=== PATIENT | female | born 1995 | race African-American/Black ===

== ENCOUNTER 2017-07-05 09:26 | Day surgery (SDC) | payer OTHER ==
[2017-07-05 09:57] LABS: #Lymphocytes 1.7 thou/uL (1.20-3.40); #Monocytes 0.5 thou/uL (0.11-0.59); #Neutrophils 5.3 thou/uL (1.40-6.50); %Basophils 0.3 % (0.0-1.0); %Eosinophils 0.6 % (0.0-10.0); %Lymphocytes 22.8 % (21.0-51.0); Hematocrit 25.5 % (36.0-47.0); Mean Platelet Volume 10.8 fL (7.4-10.4); Red Blood Cell (RBC) Count 3.93 mill/uL (4.20-5.40); White Blood Cell (WBC) Count 7.6 thou/uL (4.8-10.8)
[2017-07-05 10:11] LABS: Anisocytosis SLIGHT = 6-15 cells (100X) (0-5/hpf); Elliptocytes SLIGHT = 2-5 cells (100X) (0-1/hpf); Hypochromia MODERATE=16-30 cells (100X) (0-5/hpf); Microcytosis MODERATE=15-30 cells (100X) (0-5/hpf); Ovalocytes SLIGHT = 2-5 cells (100X) (0-1/hpf); Polychromasia SLIGHT = 2-3 cells (100X) (0-2/hpf); Schistocytes SLIGHT = 2-5 cells (100X) (0-1/hpf); Target Cells SLIGHT = 2-5 cells (100X) (0-1/hpf)
[2017-07-05 10:45] VITALS: BMI 17.7
[2017-07-05] MEDS ORDERED: FLU VACC QS2017-18 36 mo. & older 0.5 ML SYRINGE IM ONE (11:00)
--- NOTE | 2017-07-05 11:14 | PDOC.LDHP ---
Labor and Delivery H&P Chief complaint: contractions, abdominal pain, other (diarrhea) HPI: 21 yo at 19.4 by LMP/reported 14w sono who presents for chief complaint of contractions and diarrhea. She has had nausea and vomiting throughout the and takes promethazine every 6 hours for nausea. She has not had ongoing vomiting but started to have diarrhea last night and had approximately 8 episodes over the last 12 hours. She noticed some cramping as well and that the baby "dropped" again. She is not sure if she has had any leakage of fluid. She says the cramping started at 2100 and increased in severity at 0200 and again at 0700. At that time she called an ambulance and was taken to the ER. She is feeling the baby move occasionally. When she was in the ER she had the urge to push. A vaginal exam was performed with showed her cervix to be closed/ thick/high with no noted bleeding or discharge. 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 and primary C/S at 30w Current complications: other (see above) Past Medical History: Uterine Didelphys Anemia of Prior C/S N/V of Current medications: pre- vitamins, iron Previous surgical history: low tranverse CS, other (bladder surgery) Social history: other - Physical Exam Vital signs reviewed and normal: yes General: NAD Heart: RRR Lungs: CTAB Abdomen: NTTP Extremeties: no edema [place] contractions every: initially every 3 minutes, now none picking up on toco - Vaginal Exam cm dilated: 0 Effacement: 0% Station: -3 - Assessment 21 yo at 19.4w by LMP/reported 14 w sono here with contractions without cervical change - Plan -: 1. Contractions without cervical change - Initially q3 minutes on monitor - Now spaced out - IVF and continue to monitor 2. sIUP - Records from [facility] indicate fundal placenta and DWAYNE of 16 on 06/13/2017 - Dr. Torrie Gordon in [place] is primary OB - She has follow-up appointment with Dr. Gordon tomorrow - Continue PNV 3. Uterine didelphys 4. H/o C/S 5. H/o bladder surgery 6. Anemia of - Continue iron - Improved since last check 7. Diarrhea - Likely viral gastroenteritis - Will IV hydration and monitor - Will send stool studies if persistent 8. Back pain - Initially worse with contractions now persistent - Tossing and turning all night - Will try flexeril and see if she has relief 9. Headache - Has had a headache every other day or so the last few weeks - Endorses history of migraines but headache today is different and feels like a band - IVF and tylenol Plan discussed with Dr. Connell who is in agreement <Liliam Amor - Last Filed: 07/05/17 11:32> <Yari Connell - Last Filed: 07/05/17 14:29> Allergies/Adverse Reactions: Allergies Allergy/AdvReac Type Severity Reaction Status Date / Time diphenhydramine Allergy Short of Verified 07/05/17 10:17 [From Benadryl] Breath Attending Addendum - Attending Addendum I personally evaluated the patient and discussed the management with Dr. Amor. I agree with the History, Examination, Assessment and Plan documented above. Patient reports symptoms have resolved. Discharged home to follow up at scheduled appointment tomorrow. <Yari Connell - Last Filed: 07/05/17 14:29>
[2017-07-05] MEDS ORDERED: Acetaminophen 500 MG TAB PO PRN (11:31)
[2017-07-05] MEDS ORDERED: Cyclobenzaprine 10 MG TAB PO SCH (12:00)
== END 2017-07-05 13:30 | disposition home or self-care (01) ==
LOC: ERS 09:26 → L&D/OP 10:09
PROVIDERS: ATTEND Obstetrics & Gynecology
DX: O60.02 Preterm labor without delivery, second trimester (principal); Z3A.19 19 weeks gestation of pregnancy; Q51.2 Other doubling of uterus; O99.012 Anemia complicating pregnancy, second trimester; O99.89 Other specified diseases and conditions complicating pregnancy, childbirth and the puerperium; R19.7 Diarrhea, unspecified; M54.9 Dorsalgia, unspecified; R51 Headache; Z79.899 Other long term (current) drug therapy; Z88.8 Allergy status to other drugs, medicaments and biological substances; Z98.890 Other specified postprocedural states
CPT/HCPCS: 36415; 76815; 84702; 85025; 86850; 86900; 86901; 96360; 96361; 99285

== ENCOUNTER 2018-02-02 08:10 | Outpatient (CLI) | payer OTHER ==
--- NOTE | 2018-02-02 11:38 | ULT ---
PELVIS ULTRASOUND: HISTORY: Pelvic pain. Swelling at the site and uterine bleeding since 12/20/2017. COMPARISON: None. TECHNIQUE: Multiplanar durán-scale and color Doppler images were obtained in a transabdominal and transvaginal pe lvic ultrasound. Spectral analysis of the Doppler waveforms of the ovaries was performed. FINDINGS: A small amount of fluid is seen within the cervix, which is not completely closed. The patient appea rs to have a uterine didelphys. The endometrial stripe, at the right aspect of the uterine didelphys , is hypoechoic and thickened, measuring 1.8 cm. The endometrial stripe at the left aspect of the di delphys is 0.7 cm in size. No free fluid is seen in the pelvis. Neither ovary could be visualized. IMPRESSION: There is either a hypoechoic endometrial stripe versus fluid at the right aspect of the uterine didel phys. Fluid is seen, as well, in the cervix. The cause for this fluid is uncertain. POS: GERMAINE
== END 2018-02-02 08:11 | disposition home or self-care (01) ==
LOC: SCSULT 08:10
DX: R10.2 Pelvic and perineal pain (principal)
CPT/HCPCS: 76856

== ENCOUNTER 2018-02-24 16:42 | Emergency (ER) | payer OTHER ==
[2018-02-24 17:21] LABS: Hemoglobin 10.6 g/dL (12.0-16.0); Mean Corpuscular HGB CONC 32.8 g/dL (32.0-36.0); Mean Corpuscular Volume 67.2 fL (78.0-98.0); Mean Platelet Volume 10.2 fL (7.4-10.4); Platelet Count 279 thou/uL (130-400); RBC Distribution Width 14.5 % (11.5-14.5)
[2018-02-24 17:43] LABS: Bilirubin Negative (Negative); Blood, Urine Large (Negative); Clarity CLOUDY (Clear); Glucose, Urine (Dipstick) Negative (Negative); Leukocyte Moderate (Negative); Nitrite Positive (Negative); Protein, Urine (Dipstick) Trace mg/dL (Neg-Trace); pH, Urine 6.5 (5.0-9.0)
[2018-02-24 17:50] LABS: #Eosinphils 0.1 thou/uL (0.0-0.7); #Lymphocytes 1.4 thou/uL (1.20-3.40); #Monocytes 0.3 thou/uL (0.11-0.59); #Neutrophils 3.2 thou/uL (1.40-6.50); %Basophils 0.5 % (0.0-1.0); %Eosinophils 1.6 % (0.0-10.0); %Monocytes 5.3 % (0.0-10.0); %Neutrophils 63.6 % (42.0-75.0); Anisocytosis SLIGHT = 6-15 cells (100X) (0-5/hpf); Hypochromia SLIGHT = 6-15 cells (100X) (0-5/hpf); MDiff Complete? YES; Microcytosis SLIGHT = 6-15 cells (100X) (0-5/hpf); Ovalocytes SLIGHT = 2-5 cells (100X) (0-1/hpf); PLT Morphology Comment Appears Adequate
[2018-02-24 17:51] LABS: Bacteria/HPF 4+ HPF (None Seen); Pathc Cast-AUWi Flag 0.72 (0-2.49); WBC/HPF 21-50 HPF (0-3)
[2018-02-24 17:54] LABS: Hyaline Casts/LPF 0-3 HYALINE CAST LPF (0-3 Hyaline)
--- NOTE | 2018-02-24 21:30 | ULT ---
PELVIC ULTRASOUND: 02/24/18 Transabdominal ultrasound of pelvis performed. INDICATIONS: Right pelvic pain. Irregular vaginal bleeding. FINDINGS: The endometrial stripe is mildly prominent measured at up to 1.0 cm. there is an abnormal area of low echogenicity in the lower uterine segment and possibly internal os region measuring approximately 2 cm thickness x 5 cm length. This could represent blood clot or complex fluid/blood. The ovaries are identified. Normal appearing follicles. Color doppler and spectral analysis demonstra adrian blood flow to both ovaries. IMPRESSION: Endometrial stripe is thickened. There is abnormal mass-like area of hypoechogenicity in the lower ut erine segment and internal os possibly involving part of the cervical canal which could represent com plex fluid or blood collection. Recommend endometrial sampling. POS: GERMAINE
[2018-02-24] MEDS ORDERED: Ketorolac Tromethamine 30 MG/ML VIAL ONE (22:22)
[2018-02-24] MEDS ORDERED: Dicyclomine 20 MG TAB ONE (22:40)
[2018-02-27 01:08] LABS: Chlamydia by PCR Not Detected (NotDetected); GC by PCR Not Detected (NotDetected)
== END 2018-02-24 22:47 | disposition home or self-care (01) ==
LOC: ERS 16:42
DX: N76.0 Acute vaginitis (principal); F32.9 Major depressive disorder, single episode, unspecified
CPT/HCPCS: 36415; 76856; 81003; 81015; 84702; 85025; 86900; 86901; 87480; 87491; 87510; 87591; 87660; J1885

== ENCOUNTER 2018-02-27 07:49 | Outpatient (CLI) | payer OTHER ==
[2018-02-27] MEDS ORDERED: Gadobenate Dimeglumine 529 MG/1 ML (20ML VIAL) ONE (09:00)
--- NOTE | 2018-02-27 12:33 | MRI ---
MRI PELVIS WITH AND WITOUT CONTRAST: HISTORY: Uterine didelphys. COMPARISON: Multiple prior ultrasound examinations. FINDINGS: There is a uterine didelphys with 2 completely separate uterine horn cervices. There are also separa te upper vaginal vaults. The right moiety has a transversely oriented septum causing obstruction to the right-sided horn. The right internal and external cervical os is open with T1 hyperintense debri s. Both of the ovaries are normal. No free intraperitoneal fluid. No dilated loops of bowel. 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 No adenopathy. 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 There is also a trans versely oriented septum causing blockage of the right moiety with hemorrhage throughout the endometri al cavity, cervix, and the separate noncommunicating upper vaginal vault. POS: TEODORO
== END 2018-02-27 07:50 | disposition home or self-care (01) ==
LOC: SCSMRI 07:49
PROVIDERS: ATTEND Obstetrics & Gynecology
DX: Q51.2 Other doubling of uterus (principal); R58 Hemorrhage, not elsewhere classified
CPT/HCPCS: 72197; A9579